=== PATIENT | male | born 1955 | race Caucasian/White ===

== ENCOUNTER → 2017-05-18 | Outpatient (CLI) | payer MEDICARE ==
[~2017-05-18] MED LIST: LIPITOR20 MG PO; LISINOPRIL10 MG PO; SERTRALINE HCL50 MG PO; VOLTAREN75 MG PO
--- NOTE | ~2017-05-18 | US37 ---
[facility] A Service of [facility] & [facility] RADIOLOGY TEXT RESULTS PATIENT: ROSALBA HOLT LOCATION: SNIV : 57 UNIT #: [id number] AGE: [address]: Zuleyma Hernandez APRN SEX: M ORDER DR: [id number] [address] [address] [id number] O MR#: [id number] Acc #: [id number] NAME: ROSALBA HOLT : 1955 SEX: M STUDY DATE/TIME: 05/18/2017 13:16 UNIT: SNIV ROOM: STUDY DESCRIPTION: US Carotid W/Doppler Bilateral Attending Physician: Zuleyma Hernandez A.P.R.N. Referring Physician: Zuleyma Hernandez A.P.R.N. Ordering Physician: Zuleyma Hernandez A.P.R.N. Primary Care Physician: Zuleyma Hernandez A.P.R.N. MEDICAL IMAGING REPORT This report is preliminary unless electronic signature is present. EXAM Bilateral carotid Doppler INDICATIONS Follow up carotid stenosis PROCEDURE Polk-scale, color Doppler, spectral imaging bilateral carotid vertebral systems; carotid flow assessed using NASCET like methodology. COMPARISON 05/18/2016 FINDINGS Moderate atherosclerotic calcification distal CCA, carotid bulb and proximal ICA. Right vertebral artery is not well seen but there is a faint spectral tracing detected. Moderate calcified plaque in the left carotid bulb. Peak systolic velocity in the right ICA measures 344 cm/sec. Peak systolic velocity left ICA measures 82 cm/sec. Flow in the external carotid and vertebral arteries directed antegrade. Peak systolic velocity in the right ECA 145 cm/sec. ICA:CCA ratio measures 5.8 on the right 0.9 on the left. Peak systolic velocity in the right ICA on the previous study measured up to 319 cm/sec. IMPRESSION Bilateral plaque. Right carotid stenosis, estimated at greater than or equal to 70% stenosis based on NASCET like methodology. The peak systolic velocity in the right ICA is slightly increased compared with the prior study but still consistent with greater than or equal to 70% stenosis. STS. [facility] A Service of [facility] & [facility] RADIOLOGY TEXT RESULTS PATIENT: ROSALBA HOLT LOCATION: [facility] : [birth year] UNIT #: [id number] AGE: [address]: Zuleyma Hernandez APRN SEX: M ORDER DR: Dictated by... Virgilio Vazquez M.D. THIS IS AN ELECTRONICALLY VERIFIED REPORT Virgilio Vazquez M.D. at 05/19/2017 10:06 AM EED/to TD: 05/18/2017 18:45 JOB #: [id number] MEDICAL IMAGING REPORT Page 1 of 1
== END | disposition home or self-care (01) ==
LOC: SNIV 12:46
DX: I65.23 Occlusion and stenosis of bilateral carotid arteries (principal)
CPT/HCPCS: 93880